=== PATIENT | female | born 1960 | race Caucasian/White ===

== ENCOUNTER 2024-04-13 16:16 | Inpatient (IN) | payer OTHER ==
[2024-04-13 18:19] VITALS: BMI 32.9
[2024-04-13] MEDS ORDERED: NALOXONE HCL 0.4 MG/ML VIAL IM PRN (18:56)
[2024-04-13] MEDS ORDERED: IBUPROFEN 400 MG TABLET (FP) PO PRN (18:56)
[2024-04-13] MEDS ORDERED: guaiFENesin 600 MG TABLET.ER (FP) PO PRN (18:56)
[2024-04-13] MEDS ORDERED: DICYCLOMINE HCL 10 MG CAPSULE PO PRN (18:56)
[2024-04-13] MEDS ORDERED: NICOTINE POLACRILEX 2 MG GUM BUC PRN (18:56)
[2024-04-13] MEDS ORDERED: NICOTINE POLACRILEX 2 MG LOZENGE BC PRN (18:56)
[2024-04-13] MEDS ORDERED: MAGNESIUM HYDROX 2400MG/30ML ORAL SUSPENSION 30 ML CUP PO PRN (18:56)
[2024-04-13] MEDS ORDERED: POLYETHYLENE GLYCOL (HEALTHYLAX) 3350 17 GM PACKET PO PRN (18:56)
[2024-04-13] MEDS ORDERED: BENZONATATE 200 MG CAPSULE PO PRN (18:56)
[2024-04-13] MEDS ORDERED: BISMUTH SUBSALICYLATE 524 MG/30 ML PO PRN (18:56)
[2024-04-13] MEDS ORDERED: NALOXONE (NARCAN) HCL 4 MG/0.1 ML SPRAY NS PRN (18:56)
[2024-04-13] MEDS ORDERED: LOPERAMIDE HCL 2 MG CAPSULE PO PRN (18:56)
[2024-04-13] MEDS ORDERED: BENZOCAINE/MENTHOL (CHLORASEPTIC ) LOZENGE MM PRN (18:56)
[2024-04-13] MEDS: propRANOLol HCL 10 MG TABLET PO ONE (20:59)
[2024-04-13] MEDS: chlordiazePOXIDE HCL 25 MG CAPSULE PO SCH (22:21)
[2024-04-13] MEDS: THIAMINE 100 MG TABLET PO SCH (22:21)
[2024-04-13] MEDS: MELATONIN 5 MG TABLETS PO SCH (22:21)
[2024-04-13] MEDS: METHOCARBAMOL 500 MG TABLET PO PRN (22:21)
[2024-04-14] MEDS: IBUPROFEN 600 MG TABLET (FP) PO PRN (05:44)
[2024-04-14] MEDS: ONDANSETRON *ODT* 4 MG TABLET SL PRN (05:44)
[2024-04-14] MEDS: PRENATAL VITAMINS W/ FOLIC ACID TABLET (FP) PO SCH (10:17)
[2024-04-14] MEDS: P-EPHED 60MG/TRIPROLIDI 2.5MG TABLET PO PRN (10:17)
[2024-04-14] MEDS: ACETAMINOPHEN 325 MG TABLET (FP) PO PRN (10:17)
[2024-04-14 11:28] LABS: HEMATOCRIT 40.8 % (32.4-45.2); HEMOGLOBIN 13.1 GM/dL (10.7-15.3); MCH 31.4 pg (25.7-33.7); MCHC 32.2 g/dl (32.0-36.0); MEAN CELL VOLUME 97.7 fl (80-96); MEAN PLT VOLUME 7.7 fl (7.5-11.1); PLATELET COUNT 210 10^3/uL (134-434); RBC 4.18 M/mm3 (3.60-5.2); RDW 13.2 % (11.6-15.6); WHITE BLOOD COUNT 8.6 K/mm3 (4.0-10.0)
[2024-04-14 11:40] LABS: CHLORIDE 106 mmol/L (98-107); POTASSIUM 4.4 mmol/L (3.5-5.1); SODIUM 142 mmol/L (136-145)
[2024-04-14 11:44] LABS: CALCIUM 9.7 mg/dL (8.5-10.1)
[2024-04-14 11:45] LABS: ALBUMIN 3.5 g/dl (3.4-5.0); ANION GAP 10 mmol/L (4-13); CO2 25 mmol/L (21-32); GLUCOSE,RANDOM 119 mg/dL (74-106)
[2024-04-14 11:48] LABS: CREATININE 0.8 mg/dL (0.55-1.3); SGOT/AST 62 U/L (15-37); SGPT/ALT 35 U/L (13-61)
[2024-04-14 11:49] LABS: BILIRUBIN,TOTAL 0.6 mg/dL (0.2-1); TOT PROT 6.6 g/dl (6.4-8.2)
[2024-04-14 11:51] LABS: ALK PHOS 124 U/L (45-117)
[2024-04-14] MEDS: hydrOXYzine PAMOATE 25 MG CAPSULE (FP) PO PRN (22:05)
[2024-04-15] MEDS: chlordiazePOXIDE HCL 25 MG CAPSULE PO SCH (05:24)
[2024-04-15] MEDS: methaDONE HCL 10 MG TABLET (FOR DETOX USE ONLY) PO ONE (10:43)
[2024-04-15] MEDS: chlordiazePOXIDE HCL 25 MG CAPSULE PO PRN (13:29)
[2024-04-15] MEDS: cloNIDine HCL 0.1 MG TABLET PO PRN (17:03)
[2024-04-15] MEDS: ATORVASTATIN CA 20 MG TABLET (FP) PO SCH (21:48)
[2024-04-16] MEDS: chlordiazePOXIDE HCL 10 MG CAPSULE PO PRN (02:52)
[2024-04-16] MEDS: chlordiazePOXIDE HCL 10 MG CAPSULE PO SCH (05:48)
[2024-04-16] MEDS: MAG HYDROX/AL HYDROX/SIMETH 30 ML UNIT-DOSE CUP PO PRN (09:17)
[2024-04-16] MEDS ORDERED: methaDONE HCL 10 MG TABLET (FOR DETOX USE ONLY) PO ONE (10:00)
[2024-04-16] MEDS: NICOTINE 14 MG/24 HOURS TOPICAL PATCH TD SCH (11:58)
[2024-04-16] MEDS: amLODIPine BESYLATE 10 MG TABLET (FP) PO SCH (17:27)
[2024-04-17] MEDS: chlordiazePOXIDE HCL 10 MG CAPSULE PO SCH (05:30)
[2024-04-17] MEDS: methaDONE HCL 10 MG TABLET (FOR DETOX USE ONLY) PO ONE (10:43)
[2024-04-17] MEDS: LISINOPRIL 10 MG TABLET PO SCH (11:32)
[2024-04-17] MEDS: METHOCARBAMOL 500 MG TABLET PO PRN (21:41)
[2024-04-18] MEDS: chlordiazePOXIDE HCL 10 MG CAPSULE PO ONE (05:38)
[2024-04-18 06:37] VITALS: RESP 17
[2024-04-18 09:34] VITALS: BP 121/62; PULSE 78; TEMP 97.7
[2024-04-19] MEDS ORDERED: methaDONE HCL 10 MG TABLET (FOR DETOX USE ONLY) PO ONE (10:00)
== END 2024-04-18 10:13 | disposition home or self-care (01) | DRG 897 ==
LOC: YASAS 16:16 → Y3N 19:12
PROVIDERS: ADMIT Allergy & Immunology; ATTEND Surgery
PROC: HZ2ZZZZ Detoxification Services for Substance Abuse Treatment (ICD-10-PCS; principal; 2024-04-13)
DX: F11.23 Opioid dependence with withdrawal (principal); F13.20 Sedative, hypnotic or anxiolytic dependence, uncomplicated; F10.230 Alcohol dependence with withdrawal, uncomplicated; F17.210 Nicotine dependence, cigarettes, uncomplicated; F41.9 Anxiety disorder, unspecified; I10 Essential (primary) hypertension; G89.4 Chronic pain syndrome; M25.551 Pain in right hip; M79.662 Pain in left lower leg
CPT/HCPCS: 36415; 80053; 80305; 80307; 81025; 85027; 86780; 93005; 93010; Q0162